=== PATIENT | female | born 1995 | race Caucasian/White ===

== ENCOUNTER 2016-07-18 10:47 | Emergency (ER) | payer OTHER ==
[~2016-07-18] VITALS: Ht 157.5 cm; Wt 52.0 kg
[2016-07-18 11:58] LABS: HEMATOCRIT 34.3 % (36.0-46.0); MCH 27.1 PG (29.0-34.0); MCHC 32.7 G/DL (30.0-36.0); MCV 82.9 FL (83-99); MEAN PLAT.VOLUME 9.9 uM^3 (9.5-12.4); PLATELET COUNT 287 K/uL (156-360); RBC DIS.WIDTH-SD 38.5 % (39-53); RED BLOOD COUNT 4.14 M/uL (3.80-5.20); WHITE BLOOD COUNT 9.5 K/uL (4.1-10.2)
[2016-07-18 12:10] LABS: CHLORIDE 107 mEq/L (99-109); POTASSIUM 3.8 mEq/L (3.7-5.4); SODIUM 137 mEq/L (136-147)
[2016-07-18 12:12] LABS: GLUCOSE 76 mg/dL (70-99)
[2016-07-18 12:14] LABS: ANION GAP 13 MEQ/L (2-14); TOTAL BILIRUBIN 0.6 mg/dL (0.0-1.0)
[2016-07-18 12:16] LABS: ALKALINE PHOSPHATASE 118 IU/L (3-129); GFR ESTIMATE (CALCULATED) > 59 mL/min/
[2016-07-18 12:17] LABS: UREA NITROGEN (BUN) 7 mg/dL (9-23)
[2016-07-18 14:16] LABS: ADD MIUA? YES; BILIRUBIN NEGATIVE; BLOOD SMALL; COLOR YELLOW ((YELLOW)); GLUCOSE (STRIP) NEGATIVE; KETONES 80; LEUKOCYTES SMALL; NITRITE NEGATIVE; PROTEIN (STRIP) 30; SPECIFIC GRAVITY 1.018 (1.000-1.030)
[2016-07-18 14:32] LABS: BACTERIA RARE /HPF; CALCIUM OXALATE CRYSTALS 1+ /HPF; EPITHELIAL CELLS 2+ /HPF; MUCUS 1+ /LPF; RED BLOOD CELLS 0-5 /HPF (0-5); UCUL ADDED? NO; WHITE BLOOD CELLS 15-20 /HPF (0-5)
[2016-07-18 19:04] VITALS: BP 130/76
[2016-07-18 21:35] VITALS: BP 119/57
[2016-07-19] VITALS (8 sets, daily range): BP systolic 98–121; BP diastolic 56–80
[2016-07-19 18:49] LABS: ADD MIUA? YES; BILIRUBIN NEGATIVE; BLOOD NEGATIVE; COLOR STRAW ((YELLOW)); GLUCOSE (STRIP) NEGATIVE; KETONES NEGATIVE; LEUKOCYTES LARGE; NITRITE NEGATIVE; PROTEIN (STRIP) NEGATIVE; SPECIFIC GRAVITY 1.005 (1.000-1.030); UROBILINOGEN 0.2 MG/DL (0.2-1.0)
[2016-07-19 19:05] LABS: BACTERIA RARE /HPF; EPITHELIAL CELLS 2+ /HPF; MUCUS NONE SEEN /LPF; RED BLOOD CELLS NONE SEEN /HPF (0-5); UCUL ADDED? NO
[2016-07-20 07:39] VITALS: BP 124/70
[2016-07-20 09:01] LABS: MCH 27.2 PG (29.0-34.0); MCHC 32.9 G/DL (30.0-36.0); MCV 82.8 FL (83-99); PLATELET COUNT 223 K/uL (156-360); RBC DIS.WIDTH-CV 13.2 % (11.8-14.6); RBC DIS.WIDTH-SD 38.9 % (39-53); RED BLOOD COUNT 3.38 M/uL (3.80-5.20); WHITE BLOOD COUNT 8.2 K/uL (4.1-10.2)
[2016-07-20 11:03] LABS: ANION GAP 9 MEQ/L (2-14); CHLORIDE 103 MEQ/L (99-109); GFR ESTIMATE (CALCULATED) > 59 mL/min/; GLUCOSE 87 mg/dL (70-99); POTASSIUM 3.7 MEQ/L (3.7-5.4); SAMPLE HEMOLYSIS CHECK 0; SAMPLE ICTERIC CHECK 0; SAMPLE LIPEMIA CHECK 0; SODIUM 138 MEQ/L (136-147); UREA NITROGEN (BUN) 4 mg/dL (9-23)
[2016-07-20 11:20] VITALS: BP 114/65
[2016-07-20 15:03] VITALS: BP 120/75
[2016-07-20 19:25] VITALS: BP 100/70
[2016-07-20 23:05] VITALS: BP 110/80
[2016-07-21 03:00] VITALS: BP 114/59
[2016-07-21 10:00] VITALS: BP 110/78
[2016-07-21 15:08] VITALS: BP 108/69
[2016-07-21 20:04] VITALS: BP 108/69
[2016-07-21 23:00] VITALS: BP 122/68
[2016-07-22 03:00] VITALS: BP 114/81
[2016-07-22 07:47] VITALS: BP 118/79
[2016-07-22] MEDS ORDERED: AMITRIPTYLINE H10 MG PO (11:28)
[2016-07-22] MEDS ORDERED: ANTIVERT25 MG PO (11:28)
[2016-07-22] MEDS ORDERED: ZOFRAN4 MG PO (11:28)
[2016-07-22 11:46] VITALS: BP 110/67
== END 2016-07-22 13:26 | disposition home or self-care (01) ==
LOC: EME 10:47 → 2WEST 16:17
PROVIDERS: Internal Medicine; Physician Assistant Medical
DX: O26.893 Other specified pregnancy related conditions, third trimester (principal); R42 Dizziness and giddiness; O28.8 Other abnormal findings on antenatal screening of mother; Z3A.31 31 weeks gestation of pregnancy; R11.2 Nausea with vomiting, unspecified; Z82.3 Family history of stroke; Z82.0 Family history of epilepsy and other diseases of the nervous system; H55.00 Unspecified nystagmus; E86.0 Dehydration; R51 Headache; Z83.49 Family history of other endocrine, nutritional and metabolic diseases
CPT/HCPCS: 59025; 80048; 80053; 81003; 85027; 87040; 93005; 93306; 99281; 99285; G0378; J2405; J7030; J7120